=== PATIENT | female | born 1985 | race Caucasian/White ===

== ENCOUNTER 2016-12-27 22:07 | Emergency (ER) ==
[2016-12-27 23:18] LABS: MANUAL DIFF NEEDED? NO
[2016-12-27 23:29] LABS: EOS# 0.03 X1000 (0.0-0.7); EOS% 0.5 % (0.0-10.0); HEMATOCRIT 36.8 % (37.0-47.0); HEMOGLOBIN 12.5 g/dL (12.0-16.0); IMM GRAN# 0.01 X1000 (0.0-0.04); IMM GRAN% 0.2 % (0.0-0.5); LYMPH# 1.73 X1000 (1.2-3.4); MCH 30.2 PG (27-31); MCV 88.9 FL (81-99); MONO# 0.53 X1000 (0.11-0.59); MONO% 8.9 % (1.7-9.3); MPV 8.3 FL (7.4-10.4); NEUT% 61.4 % (42.2-75.2); PLT 202 X1000 (130-400); RBC 4.14 XMIL (4.2-5.4)
[2016-12-27 23:57] LABS: INR 1.12 (0.86-1.15); PROTIME 14.7 Seconds (12.1-15.5)
[2016-12-28] MEDS ORDERED: XYLOCAINE-MPF 1% INJ ONE (00:25)
[2016-12-28] MEDS ORDERED: MOTRIN PO ONE (00:25)
[2016-12-28] MEDS ORDERED: ROCEPHIN IM ONE (00:25)
--- NOTE | 2016-12-28 00:26 | PROVIDER DOCUMENTATION ---
HPI-Female /OB/Breast - General Chief Complaint: Female Stated Complaint: BLEEDING,ABD/BACK PAIN Time Seen by Provider: 12/27/16 23:11 Source: reports: patient Allergies/Adverse Reactions: Patient Allergies Allergy/AdvReac Type Severity Reaction Status Date / Time brendan [From Pooja] Allergy Intermediate HIVES Verified 12/27/16 23:11 morphine Allergy Intermediate HIVES Verified 12/27/16 23:11 Home Medications: Home Medication List Medication Instructions Recorded Confirmed Last Taken Type Norgestimate/Ethinyl Estradiol 1 each PO DAILY 05/09/16 12/27/16 07/11/16 07:00 History [Sprintec] Topiramate [Topamax] 200 mg PO BID 05/09/16 12/27/16 07/11/16 07:00 History Sumatriptan [Imitrex] 25 mg PO PRN PRN 06/23/16 12/27/16 Unknown History Levetiracetam [Keppra] 500 mg PO BID 07/11/16 12/27/16 07/07/16 07:00 History Phentermine HCl [Adipex-P] 37.5 mg PO DAILY 12/27/16 12/27/16 Unknown History Azithromycin [Zithromax Z-Mickey] 250 mg PO DIRECTED #1 pkg 12/28/16 Unknown Rx Fluconazole [Diflucan] 150 mg PO DAILY #2 tablet 12/28/16 Unknown Rx Metronidazole [Flagyl] 500 mg PO BID #20 tablet 12/28/16 Unknown Rx Tramadol [Ultram] 50 mg PO Q8HR #14 tablet 12/28/16 Unknown Rx - History of Present Illness-Female /OB Nature of Presenting Problem: Pt is a 31 y/o F c chief complaint of 1-2 weeks of intermittent vaginal bleeding. Pt states she saw her pcp who ruled out renal stones as a source of bleeding. She contacted her OBGYN who told her it would be 3 weeks before she could get an appointment. Pt denies any traumatic injury or dysparunia. Pt has a h/o partial hysterectomy that spared her ovaries and possibly her cervix. On arrival, pt is in no distress. She is complaining of moderate diffuse pelvic aching. Review of Systems - Adult - REVIEW OF SYSTEMS - ADULT Constitutional: reports: no symptoms reported. denies: chills, fatique Eyes: reports: no symptoms reported. denies: blurred vision, double vision Ears, Nose, Mouth & Throat: reports: no symptoms reported. denies: ear pain, nose pain, throat pain Cardiovascular: reports: no symptoms reported. denies: chest pain, orthopnea Respiratory: reports: no symptoms reported Gastrointestinal: reports: no symptoms reported. denies: abdominal pain, nausea Genitourinary: reports: dysuria, discharge. denies: hematuria, hesitency Musculoskeletal: reports: no symptoms reported. denies: bone pain, joint pain Integumentary: reports: no symptoms reported Neurological: reports: no symptoms reported. denies: numbness, paresthesia Psychiatric: reports: no symptoms reported. denies: anxiety, emotional problems Endocrine: reports: no symptoms reported. denies: cold intolerance, heat intolerance Hematologic/Lymphatic: reports: no symptoms reported. denies: blood clots, low blood count Allergic/Immunologic: reports: no symptoms reported. denies: allergic reactions , food allergy All Other Systems: Reviewed and Negative Past History - Adult - PAST MEDICAL HISTORY-ADULT Review of Records: reports: Old Records Reviewed, Nursing Assessment Review, Medications Reviewed, Social history reviewed & non-contributory. Major Childhood Illnesses: reports: denies history Cardiovascular: reports: denies history Respiratory: reports: denies history Gastrointestinal: reports: denies history Obstetrical/Gynecological: reports: denies history Genitourinary: reports: denies history Musculoskeletal: reports: denies history Neurological: reports: headaches/migraines, Seizures/Epilepsy Endocrine/Immune: reports: denies history Other Conditions: reports: denies history - PRIOR SURGERIES/PROCEDURES Surgical/Procedure History: reports: hysterectomy, BTL, other (thermal ablation) - PRIOR HOSPITALIZATIONS Prior Hospitalizations: reports: none - IMMUNIZATION STATUS Childhood Immunizations: See Nurse Assessment Flu Vaccine: See Nurse Assessment - FAMILY HISTORY Family History: reviewed, not pertinent Physical Exam-General - PHYSICAL EXAM-ADULT Initial Vital Signs Reviewed: Yes - CONSTITUTIONAL General Appearance: appears well, alert, no apparent distress - EYES Eyes: PERRL/EOMI, pink conjunctivae - HEAD, EARS, NOSE, MOUTH & THROAT HENMT: normocephalic/atraumatic, moist mucous membranes, normal ENT inspection - RESPIRATORY Respiratory: chest non-tender, lungs clear, normal breath sounds - CARDIOVASCULAR Cardiovascular: normal peripheral pulses, regular rate, rhythm, no edema - GASTROINTESTINAL (ABDOMEN) Abdominal Exam: normal bowel sounds, non tender, soft - GENITOURINARY Female Genitalia/Pelvic Exam: speculum exam normal, tender adnexa, other (Pt diffusely tender on bilat adnexa and suprapubic area on bimanual exam). negative: bimanual exam normal, no masses, active bleeding, blood, discharge, lesions, mass - LYMPHATIC Lymphatic: no adenopathy - MUSCULOSKELETAL Back Exam: normal inspection, no CVA tenderness, no vertebral tenderness Extremity: normal range of motion, non-tender, normal gait - SKIN Integumentary: normal color, normal turgor, warm/dry - NEUROLOGIC Neurologic: grossly normal, no motor/sensory deficits - PSYCHIATRIC Psych/Mental Status: normal mood/affect, normal thought content, normal thought process, oriented x 3 Progress - PLAN OF CARE/RESULTS Progress/Plan/Lab Results: Orders Category Date Time Status Pelvic set up DIRECTED Care 12/27/16 23:12 Active CBC WITH ELECTRONIC DIFF [HEME] Stat Lab 12/27/16 23:15 Completed CHLAMYDIA AND GC BY PCR URINE [[place]] Stat Lab 12/28/16 00:23 Ordered TEST-SERUM [PREG] Stat Lab 12/27/16 23:[address] WITH INR [address] [[place]] Stat Lab 12/27/16 23:[address] [[place]] Stat Lab 12/27/16 23:15 Completed UA [URINALYSIS PL W/POSS RFLX CULT] [URINALYSIS] Stat Lab 12/28/16 00:23 Ordered CefTRIAXONE [Rocephin] Med 12/28/16 00:25 Discontinued 1 gm IM NOW ONE Ibuprofen [Motrin] Med 12/28/16 00:25 Discontinued 800 mg PO NOW ONE Lidocaine 1% Pf [Xylocaine-Mpf 1%] Med 12/28/16 00:25 Discontinued 5 ml INJ NOW ONE Laboratory Tests 12/27/16 12/27/16 12/27/16 23:15 23:15 23:15 WBC 5.96 RBC 4.14 L Hgb 12.5 Hct 36.8 L MCV 88.9 MCH 30.2 MCHC 34.0 RDW Std Deviation 13.8 Plt Count 202 MPV 8.3 Immature Gran % (Auto) 0.2 Neut % (Auto) 61.4 Lymph % (Auto) 29.0 [place] % (Auto) 8.9 Eos % (Auto) 0.5 Baso % (Auto) 0.0 Immature Gran # (Auto) 0.01 Neut # (Auto) 3.66 Lymph # (Auto) 1.73 [place] # (Auto) 0.53 Eos # (Auto) 0.03 Baso # (Auto) 0.00 PT 14.7 INR 1.12 APTT (Factor Assay) 33.5 Serum , Qual 12/27/16 23:15 WBC RBC Hgb Hct MCV MCH MCHC RDW Std Deviation Plt Count MPV Immature Gran % (Auto) Neut % (Auto) Lymph % (Auto) [place] % (Auto) Eos % (Auto) Baso % (Auto) Immature Gran # (Auto) Neut # (Auto) Lymph # (Auto) [place] # (Auto) Eos # (Auto) Baso # (Auto) PT INR APTT (Factor Assay) Serum , Qual NEGATIVE Vital Signs - 24 hr 12/27/16 22:24 Temperature 98.2 F Pulse Rate 120 H Respiratory 18 Rate Blood Pressure 129/90 O2 Sat by Pulse 100 Oximetry Departure - Departure Time of Disposition Order: 00:24 DIAGNOSIS: Pelvic inflammation in female Disposition: HOME 01 Certified Medical Emergency: Emergent Condition: Stable Additional Instructions: FOLLOW UP WITH YOUR OBGYN FOR FURTHER EVALUATION. ED Follow Up Instructions: You have been treated by a care provider in the Emergency Department. These instructions are being provided to you so you can have an understanding of how to care for yourself upon discharge. Upon discharge from the Emergency Department, you are responsible for making arrangements for follow-up care by a physician of your choice. Take all prescribed medications as directed. Return to the Emergency Department immediately for any new or worsening symptoms. You may call the Physician Referral phone number at [phone] to obtain a list of Physicians who are taking new patients. Prescriptions: Fluconazole [Diflucan] 150 mg PO DAILY #2 tablet Metronidazole [Flagyl] 500 mg PO BID #20 tablet Tramadol [Ultram] 50 mg PO Q8HR #14 tablet Azithromycin [Zithromax Z-Mickey] 250 mg PO DIRECTED #1 pkg Referrals: Luke Bradshaw MD [Primary Care Provider] - Forms: Return to School/Parent Work Instructions: Tramadol tablets, Azithromycin tablets, Pelvic Inflammatory Disease, Metronidazole tablets or capsules Attestation - Physician/ JESSICA Attestation Patient care was provided by Advanced Practice Provider:: Yes Advanced Practice Provider:: Anthony Fajardo Advanced Practice Provider documentation review:: The Mid-level provider documentation, treatment plan and medical decision making was reviewed by the physician who agrees with all treatment and medical decision making by the MLP.
[2016-12-28 00:38] LABS: URINE CULTURE PL NEEDED? NO; URINE SOURCE CLEAN CATCH
[2016-12-28 01:18] LABS: BILIRUBIN URINE NEGATIVE (NEGATIVE); BLOOD URINE NEGATIVE (NEGATIVE); CLARITY CLEAR (CLEAR); COLOR STRAW; GLUCOSE URINE NEGATIVE (NEGATIVE); LEUKOCYTES URINE NEGATIVE (NEGATIVE); NITRITE URINE NEGATIVE (NEGATIVE); PROTEIN URINE NEGATIVE (NEGATIVE); SP GRAVITY URINE 1.005; URINE EPITHELIAL CELLS <10 /HPF (<10); URINE RBC <10 /HPF (<10); URINE WBC <10 /HPF (<10); UROBILINOGEN URINE NORMAL
[2016-12-28 01:23] VITALS: BP 134/87
== END 2016-12-28 01:04 | disposition home or self-care (01) ==
LOC: P.ED 22:07
DX: N73.9 Female pelvic inflammatory disease, unspecified (principal); N93.9 Abnormal uterine and vaginal bleeding, unspecified; R30.0 Dysuria; R51 Headache; R56.9 Unspecified convulsions; Z79.899 Other long term (current) drug therapy
CPT/HCPCS: 81001; 84703; 85025; 85610; 85730; 87491; 87591; 96372; J0696